=== PATIENT | male | born 1985 | race Caucasian/White ===

== ENCOUNTER 2016-09-14 18:25 | Emergency (ER) | payer SELFPAY | END 2016-09-14 19:25 | disposition home or self-care (01) | LOC: CFTX 18:25 → CED 18:25 → CFTX 19:17 | DX: I88.9 Nonspecific lymphadenitis, unspecified (principal); Z88.1 Allergy status to other antibiotic agents; Z88.0 Allergy status to penicillin | CPT/HCPCS: 99282 ==